=== PATIENT | female | born 1960 | race Caucasian/White ===

== ENCOUNTER 2017-04-27 12:52 | Inpatient (IN) | payer BC ==
[~2017-04-27] VITALS: Ht 162.6 cm; Wt 73.0 kg
[2017-04-27] MEDS ORDERED: METFORMIN HCL850 MG PO (14:23)
[2017-04-27] MEDS ORDERED: SUCRALFATE1 GM PO (14:23)
[2017-04-27] MEDS ORDERED: PANTOPRAZOLE SO40 MG PO (14:24)
[2017-04-27] MEDS ORDERED: SIMVASTATIN40 MG PO (14:24)
[2017-04-27] MEDS ORDERED: LISINOPRIL40 MG PO (14:24)
[2017-04-27] MEDS ORDERED: VIMPAT100 MG PO (14:24)
[2017-04-27] MEDS ORDERED: LEVOTHYROXINE112 MCG PO (14:24)
[2017-04-27] MEDS ORDERED: ADVAIR 100/501 DISK IH (14:26)
[2017-04-27] MEDS ORDERED: TOUJEO SOL300 UNIT/1 SC (14:26)
[2017-04-27] MEDS ORDERED: FLONASE16 G1 BOTH NARES (14:26)
[2017-04-27] MEDS ORDERED: GABAPENTIN600 MG PO (14:27)
[2017-04-27] MEDS ORDERED: ONGLYZA5 MG PO (14:27)
[2017-04-27] MEDS ORDERED: ZOFRAN4 MG PO (14:28)
[2017-04-27] MEDS ORDERED: LITE COAT ASPI325 M1 PO (14:28)
[2017-04-27 14:29] LABS: POINT-OF-CARE METER ID UU14100415
[2017-04-27 14:42] LABS: HEMATOCRIT 43.3 % (36.0-46.0); MCH 29.4 PG (29.0-34.0); MCV 88.9 FL (83-99); MEAN PLAT.VOLUME 10.9 uM^3 (9.5-12.4); PLATELET COUNT 227 K/uL (156-360); RBC DIS.WIDTH-CV 13.1 % (11.8-14.6); RBC DIS.WIDTH-SD 42.7 % (39-53); RED BLOOD COUNT 4.87 M/uL (3.80-5.20); WHITE BLOOD COUNT 15.7 K/uL (4.1-10.2)
[2017-04-27 14:51] LABS: CHLORIDE 102 mEq/L (99-109); POTASSIUM 3.9 mEq/L (3.7-5.4); SODIUM 139 mEq/L (136-147)
[2017-04-27 14:54] LABS: GLUCOSE 240 mg/dL (70-99)
[2017-04-27 14:55] LABS: ANION GAP 25 MEQ/L (2-14)
[2017-04-27 14:56] LABS: TOTAL BILIRUBIN 0.3 mg/dL (0.0-1.0)
[2017-04-27 14:57] LABS: ALKALINE PHOSPHATASE 76 IU/L (3-129); CARBON DIOXIDE (BICARBONATE) 13.6 MEQ/L (20-31); GFR ESTIMATE (CALCULATED) > 59 mL/min/
[2017-04-27 15:04] LABS: TROP-I INTERPRETATION NEGATIVE; TROPONIN-I < 0.01 ng/mL (0.0-0.30)
[2017-04-27 15:08] LABS: UREA NITROGEN (BUN) 11 mg/dL (9-23)
[2017-04-27 15:18] LABS: ADD MIUA? NO; BILIRUBIN NEGATIVE; BLOOD NEGATIVE; COLOR YELLOW ((YELLOW)); GLUCOSE (STRIP) >=500; KETONES 20; LEUKOCYTES NEGATIVE; NITRITE NEGATIVE; PROTEIN (STRIP) 30; SPECIFIC GRAVITY 1.015 (1.000-1.030); UCUL ADDED? NO; UROBILINOGEN 0.2 MG/DL (0.2-1.0)
[2017-04-27] MEDS ORDERED: CALCIUM 500 MG1 EACH PO (15:55)
[2017-04-27] MEDS ORDERED: SPIRIVA1 INHALATI IH (15:55)
[2017-04-27 21:08] VITALS: BP 127/74
[2017-04-28] VITALS (7 sets, daily range): BP systolic 100–139; BP diastolic 59–82
[2017-04-28 06:09] LABS: HEMATOCRIT 30.7 % (36.0-46.0); MCH 28.9 PG (29.0-34.0); MCHC 33.6 G/DL (30.0-36.0); MCV 86.2 FL (83-99); MEAN PLAT.VOLUME 11.1 uM^3 (9.5-12.4); PLATELET COUNT 170 K/uL (156-360); RBC DIS.WIDTH-CV 13.1 % (11.8-14.6); RBC DIS.WIDTH-SD 41.1 % (39-53); WHITE BLOOD COUNT 6.2 K/uL (4.1-10.2)
[2017-04-28 06:13] LABS: RED BLOOD COUNT 3.56 M/uL (3.80-5.20)
[2017-04-28 06:31] LABS: ANION GAP 8 MEQ/L (2-14); CHLORIDE 109 MEQ/L (99-109); GFR ESTIMATE (CALCULATED) > 59 mL/min/; POTASSIUM 3.7 MEQ/L (3.7-5.4); SAMPLE HEMOLYSIS CHECK 0; SAMPLE ICTERIC CHECK 0; SAMPLE LIPEMIA CHECK 0; SODIUM 142 MEQ/L (136-147); UREA NITROGEN (BUN) 6 mg/dL (9-23)
[2017-04-28 06:41] LABS: GLUCOSE 101 mg/dL (70-99)
[2017-04-29 04:14] VITALS: BP 119/67
[2017-04-29 07:47] VITALS: BP 149/76
[2017-04-29 07:47] LABS: POINT-OF-CARE METER ID UU14174225
[2017-04-29 11:51] VITALS: BP 135/77
[2017-04-29] MEDS ORDERED: KEPPRA750 MG PO (12:21)
[2017-04-29] MEDS ORDERED: VIMPAT100 MG PO (12:21)
== END 2017-04-29 15:00 | disposition home or self-care (01) | DRG 101 ==
LOC: EME 12:52 → EDOF 19:00 → 5SOUTH 19:00 → ENRESERV 19:01 → CANRESERV 19:29 → ENRESERV 19:29 → 5SOUTH 20:07
PROVIDERS: Emergency Medicine; Hospitalist
DX: G40.411 Other generalized epilepsy and epileptic syndromes, intractable, with status epilepticus (principal); R09.02 Hypoxemia; E11.9 Type 2 diabetes mellitus without complications; E87.2 Acidosis; I10 Essential (primary) hypertension; N19 Unspecified kidney failure; I69.954 Hemiplegia and hemiparesis following unspecified cerebrovascular disease affecting left non-dominant side; R32 Unspecified urinary incontinence; G93.9 Disorder of brain, unspecified; E86.0 Dehydration; Z79.899 Other long term (current) drug therapy; Z87.11 Personal history of peptic ulcer disease; Z79.84 Long term (current) use of oral hypoglycemic drugs; Z79.82 Long term (current) use of aspirin
CPT/HCPCS: 70450; 70551; 71010; 80048; 80053; 81003; 82010; 82803; 82948; 83605; 84484; 85027; 87040; 93005; 94640 76; 95819; 99281; 99285; J1650; J1815; J1953; J2060; J7030; J7050; J7120

== ENCOUNTER 2017-12-24 10:12 | Day surgery (SDC) | payer BC ==
[~2017-12-24] VITALS: Ht 162.6 cm; Wt 74.0 kg
[~2017-12-24 10:12] MED LIST: ADVAIR 100/501 DISK IH; CALCIUM 500 MG1 EACH PO; FLONASE16 G1 BOTH NARES; GABAPENTIN600 MG PO; KEPPRA750 MG PO; LEVOXYL25 MCG PO; LISINOPRIL40 MG PO; LITE COAT ASPI325 M1 PO; METFORMIN HCL850 MG PO; NOVOLOG PE100 UNITS/ SC; ONGLYZA5 MG PO; PROAIR HFA8.5 GM IH; PROTONIX40 MG PO; SIMVASTATIN40 MG PO; SPIRIVA18 MCG IH; SUCRALFATE1 GM PO; TOUJEO SOL300 UNIT/1 SC; TYLENOL REGULA325 MG PO; VIMPAT100 MG PO; VIMPAT150 MG PO; ZOFRAN4 MG PO
[2017-12-24 10:30] VITALS: BP 162/79
[2017-12-24] MEDS ORDERED: HYDROCODON-ACE1 EAC7 PO (15:23)
[2017-12-24 18:04] VITALS: BP 133/74
[2017-12-24 18:56] VITALS: BP 144/75
== END 2017-12-24 19:05 | disposition home or self-care (01) ==
LOC: SDC 10:12
PROVIDERS: Surgery
PROC: 0HBT0ZX Excision of Right Breast, Open Approach, Diagnostic (ICD-10-PCS; principal; 2017-12-24)
DX: R92.8 Other abnormal and inconclusive findings on diagnostic imaging of breast (principal); Z85.3 Personal history of malignant neoplasm of breast; E11.65 Type 2 diabetes mellitus with hyperglycemia; Z79.4 Long term (current) use of insulin; I10 Essential (primary) hypertension; J44.9 Chronic obstructive pulmonary disease, unspecified; K21.9 Gastro-esophageal reflux disease without esophagitis; G40.909 Epilepsy, unspecified, not intractable, without status epilepticus; Z88.5 Allergy status to narcotic agent; Z87.19 Personal history of other diseases of the digestive system; Z86.73 Personal history of transient ischemic attack (TIA), and cerebral infarction without residual deficits; Z98.1 Arthrodesis status; Z87.891 Personal history of nicotine dependence; Z80.3 Family history of malignant neoplasm of breast; Z80.0 Family history of malignant neoplasm of digestive organs; Z80.1 Family history of malignant neoplasm of trachea, bronchus and lung; Z82.3 Family history of stroke; Z82.49 Family history of ischemic heart disease and other diseases of the circulatory system; Z83.3 Family history of diabetes mellitus
CPT/HCPCS: 82948; 94640; 94640 76; J0131; J0690; J1100; J1170; J1200; J2250; J2405; Q0175; S0020

== ENCOUNTER 2018-02-09 14:38 | Emergency (ER) | payer BC ==
[~2018-02-09] VITALS: Ht 162.6 cm; Wt 73.0 kg
[~2018-02-09 14:38] MED LIST changes: +HYDROCODON-ACE1 EAC7 PO
[2018-02-09 15:19] LABS: APPEARANCE SL.HAZY ((CLEAR)); BILIRUBIN NEGATIVE; BLOOD NEGATIVE; COLOR YELLOW ((YELLOW)); GLUCOSE (STRIP) 50; KETONES NEGATIVE; LEUKOCYTES MODERATE; NITRITE NEGATIVE; PROTEIN (STRIP) NEGATIVE; SPECIFIC GRAVITY 1.017 (1.000-1.030); UROBILINOGEN 0.2 MG/DL (0.2-1.0)
[2018-02-09 15:27] LABS: BACTERIA NONE SEEN /HPF; EPITHELIAL CELLS 2+ /HPF; MUCUS TRACE /LPF; RED BLOOD CELLS 0-5 /HPF (0-5); UCUL ADDED? YES
[2018-02-09 15:55] LABS: HEMATOCRIT 36.8 % (36.0-46.0); HEMOGLOBIN 12.5 G/DL (11.9-15.5); MCH 28.3 PG (29.0-34.0); MCV 83.3 FL (83-99); PLATELET COUNT 186 K/uL (156-360); RBC DIS.WIDTH-SD 39.3 % (39-53); RED BLOOD COUNT 4.42 M/uL (3.80-5.20); WHITE BLOOD COUNT 9.5 K/uL (4.1-10.2)
[2018-02-09 16:04] LABS: ALBUMIN 4.3 g/dL (3.2-4.8)
[2018-02-09 16:05] LABS: CHLORIDE 101 mEq/L (99-109); POTASSIUM 4.2 mEq/L (3.7-5.4); SODIUM 140 mEq/L (136-147)
[2018-02-09 16:07] LABS: GLUCOSE 106 mg/dL (70-99); TOTAL PROTEIN 7.4 g/dL (6.4-8.3)
[2018-02-09 16:09] LABS: TOTAL BILIRUBIN 0.4 mg/dL (0.0-1.0)
[2018-02-09 16:10] LABS: ALKALINE PHOSPHATASE 89 IU/L (3-129); CREATININE 0.7 mg/dL (0.6-1.3); GFR ESTIMATE (CALCULATED) > 59 mL/min/
[2018-02-09 16:12] LABS: AST (GOT) 21 IU/L (2-34); UREA NITROGEN (BUN) 9 mg/dL (9-23)
[2018-02-09 16:13] LABS: ALT (GPT) 37 IU/L (3-49)
[2018-02-09] MEDS ORDERED: CIPRO500 MG PO (19:11)
[2018-02-09] MEDS ORDERED: TRAMADOL HCL50 MG PO (19:11)
[2018-02-09 19:25] VITALS: BP 132/74
== END 2018-02-09 19:23 | disposition home or self-care (01) ==
LOC: EME 14:38
DX: R10.31 Right lower quadrant pain (principal); R10.33 Periumbilical pain; K21.9 Gastro-esophageal reflux disease without esophagitis; J44.9 Chronic obstructive pulmonary disease, unspecified; I10 Essential (primary) hypertension; E11.9 Type 2 diabetes mellitus without complications; R56.9 Unspecified convulsions; F32.9 Major depressive disorder, single episode, unspecified; Z87.442 Personal history of urinary calculi; Z86.73 Personal history of transient ischemic attack (TIA), and cerebral infarction without residual deficits; Z90.49 Acquired absence of other specified parts of digestive tract; Z87.891 Personal history of nicotine dependence; Z79.4 Long term (current) use of insulin; Z88.5 Allergy status to narcotic agent
CPT/HCPCS: 74177; 80053; 81003; 85027; 87086; 99281; 99285; J7030